=== PATIENT | female | born 1995 | race Caucasian/White ===

== ENCOUNTER 2020-06-14 17:26 | Outpatient (REF) | payer OTHER, SELFPAY | END 2020-06-14 17:27 | disposition home or self-care (01) | LOC: HO.LAB 17:26 | PROVIDERS: Visit Provider Internal Medicine | DX: Z20.828 Contact with and (suspected) exposure to other viral communicable diseases (principal) | CPT/HCPCS: C9803; U0003 ==

== ENCOUNTER 2021-08-03 11:43 | Outpatient (REF) | payer OTHER, SELFPAY | END 2021-08-03 11:44 | disposition home or self-care (01) | LOC: HO.WFDLDS 11:43 | PROVIDERS: PCP Internal Medicine; Visit Provider Internal Medicine | DX: Z20.822 Contact with and (suspected) exposure to COVID-19 (principal) | CPT/HCPCS: C9803; U0003; U0005 ==